=== PATIENT | female | born 1945 | race Caucasian/White ===

== ENCOUNTER → 2019-10-01 | Outpatient (CLI) | payer OTHER, SELFPAY | LOC: M LABSMTC 10:00 | PROVIDERS: ATTEND Family Medicine | DX: Z20.828 Contact with and (suspected) exposure to other viral communicable diseases (principal) ==

== ENCOUNTER → 2020-10-09 | Outpatient (CLI) | payer MEDICARE, OTHER ==
--- NOTE | 2020-10-09 14:55 | REP ---
INDICATION: OCCLUSION/STENOSIS BOLIVAR CAROTID ARTERIES COMPARISON: None. TECHNIQUE: Real-time ultrasound evaluation and duplex Doppler interrogation of the extracranial carotid vasculature is performed. FINDINGS: There is mild plaquing and narrowing in both carotid bulbs extending into the internal and external carotid arteries. There is some [id number] intimal thickening but luminal narrowing is less than 50%. There is no evidence of hemodynamically significant stenosis of either internal carotid artery. Normal flow velocities are seen. The vertebral arteries demonstrate normal direction of flow. RIGHT LEFT Peak systolic velocity ICA 45.8 cm/s 35.3 cm/s End diastolic velocity ICA 12.1 cm/s 10.1 cm/s Peak systolic velocity CCA 76.1 cm/s 60.1cm/s Peak systolic velocity ECA 37.8 cm/s 45.7 cm/s ICA/CCA ratio 0.6 0.59 IMPRESSION: Bilateral luminal narrowing of the internal carotid arteries less than 50%. No evidence of hemodynamically significant stenosis. <Electronically signed by Eamon Beth > 10/09/20 0846
== END ==
LOC: M RAD 12:38
PROVIDERS: ATTEND Physician Assistant
DX: I65.23 Occlusion and stenosis of bilateral carotid arteries (principal)

== ENCOUNTER → 2024-01-27 | Outpatient (CLI) | payer MEDICARE, OTHER ==
[~2024-01-27] MED LIST: ALBU8.5H INH; ASPI-226 PO; ATOR40TA75 PO; FERR32TA PO; GABA-1171 PO; GLIP5TAB20 PO; LOSA25TA13 PO; METF500T13 PO; MONT10TA97 PO; OLOP5DRO17 OU; OMEP-173 PO; ONDA-282 PO; SERT50TA29 PO; SYNT50TA PO; TEMA15CA2 PO; TRAM50TA2 PO; VAGI10TA PO
== END ==
LOC: M RAD 14:48
PROVIDERS: ATTEND Physician Assistant
DX: I65.23 Occlusion and stenosis of bilateral carotid arteries (principal)

== ENCOUNTER 2024-02-11 08:16 | Day surgery (SDC) | payer MEDICARE, OTHER ==
[~2024-02-11] VITALS: Ht 154.9 cm; Wt 76.9 kg
[~2024-02-11 08:16] MED LIST changes: +PHENYLEPHRINE 10% OPHTH SOL 5ML OD PRN
[2024-02-11] MEDS: ATROPINE SULFATE 1% OPHTH SOLN 2ML BTL OD SCH (08:54)
[2024-02-11] MEDS: PHENYLEPHRINE 2.5% OPHTH SOL 2ML OD SCH (08:55)
[2024-02-11] MEDS: TROPICAMIDE 1% OPHTH SOLN 15ML OD SCH (08:55)
[2024-02-11] MEDS: OFLOXACIN 0.3 % (OCUFLOX) OPTH SOL 5ML OD ONE (08:55)
[2024-02-11] MEDS: LIDOCAINE 3.5 % 1ML OPHTH TOPICAL GEL OU ONE (08:56)
[2024-02-11] MEDS ORDERED: MIDAZOLAM INJ 2MG/2ML VIAL As Ordered ONE (09:13)
[2024-02-11] MEDS: BSS IRRIG/VANCO(10MG)/TOBRA(5MG)/EPINEPH(1:1000-0.5CC)500ML BAG-ORONLY As Ordered ONE (09:16)
[2024-02-11] MEDS: LIDOCAINE 1% SDV 5ML VIAL As Ordered ONE (09:16)
[2024-02-11] MEDS ORDERED: fentaNYL 100 MCG/2 ML INJECTION As Ordered ONE (09:16)
[2024-02-11] MEDS: CEFUROXIME 1MG/0.1ML INTRACAMERAL INJ As Ordered ONE (09:21)
[2024-02-11 09:29] VITALS: BP 148/65; TEMP 96.6; O2SAT 97
== END 2024-02-11 09:58 | disposition home or self-care (01) ==
LOC: M SDC 08:16
PROVIDERS: ATTEND Ophthalmology
DX: H25.11 Age-related nuclear cataract, right eye (principal); I25.10 Atherosclerotic heart disease of native coronary artery without angina pectoris; E11.9 Type 2 diabetes mellitus without complications; E03.9 Hypothyroidism, unspecified; K21.9 Gastro-esophageal reflux disease without esophagitis; M19.90 Unspecified osteoarthritis, unspecified site; G43.909 Migraine, unspecified, not intractable, without status migrainosus; G57.93 Unspecified mononeuropathy of bilateral lower limbs; G57.63 Lesion of plantar nerve, bilateral lower limbs; J45.909 Unspecified asthma, uncomplicated; Z79.899 Other long term (current) drug therapy; Z79.82 Long term (current) use of aspirin; Z79.84 Long term (current) use of oral hypoglycemic drugs; Z79.890 Hormone replacement therapy
CPT/HCPCS: 66984; J0697; J2250; J3010; V2632

== ENCOUNTER 2024-02-25 07:46 | Day surgery (SDC) | payer MEDICARE, OTHER ==
[~2024-02-25] VITALS: Ht 152.4 cm; Wt 76.5 kg
[~2024-02-25 07:46] MED LIST changes: -PHENYLEPHRINE 10% OPHTH SOL 5ML OD PRN; +PHENYLEPHRINE 10% OPHTH SOL 5ML OS PRN
[2024-02-25] MEDS: LIDOCAINE 3.5 % 1ML OPHTH TOPICAL GEL OU ONE (08:14)
[2024-02-25] MEDS: OFLOXACIN 0.3 % (OCUFLOX) OPTH SOL 5ML OS ONE (08:14)
[2024-02-25] MEDS: PHENYLEPHRINE 2.5% OPHTH SOL 2ML OS SCH (08:15)
[2024-02-25] MEDS: ATROPINE SULFATE 1% OPHTH SOLN 2ML BTL OS SCH (08:15)
[2024-02-25] MEDS: TROPICAMIDE 1% OPHTH SOLN 15ML OS SCH (08:15)
[2024-02-25] MEDS ORDERED: MIDAZOLAM INJ 2MG/2ML VIAL As Ordered ONE (09:38)
[2024-02-25] MEDS ORDERED: fentaNYL 100 MCG/2 ML INJECTION As Ordered ONE (09:38)
[2024-02-25] MEDS: CEFUROXIME 1MG/0.1ML INTRACAMERAL INJ As Ordered ONE (09:38)
[2024-02-25] MEDS: LIDOCAINE 1% SDV 5ML VIAL As Ordered ONE (09:38)
[2024-02-25] MEDS: BSS IRRIG/VANCO(10MG)/TOBRA(5MG)/EPINEPH(1:1000-0.5CC)500ML BAG-ORONLY As Ordered ONE (09:38)
[2024-02-25 09:45] VITALS: BP 108/58; TEMP 97.3; O2SAT 98
== END 2024-02-25 10:07 | disposition home or self-care (01) ==
LOC: M SDC 07:46
PROVIDERS: ATTEND Ophthalmology
DX: E11.36 Type 2 diabetes mellitus with diabetic cataract (principal); H25.12 Age-related nuclear cataract, left eye; I25.10 Atherosclerotic heart disease of native coronary artery without angina pectoris; E03.9 Hypothyroidism, unspecified; E11.40 Type 2 diabetes mellitus with diabetic neuropathy, unspecified; J45.909 Unspecified asthma, uncomplicated; K21.9 Gastro-esophageal reflux disease without esophagitis; Z79.899 Other long term (current) drug therapy; Z79.82 Long term (current) use of aspirin; Z79.84 Long term (current) use of oral hypoglycemic drugs; Z79.890 Hormone replacement therapy; Z90.710 Acquired absence of both cervix and uterus; Z87.19 Personal history of other diseases of the digestive system; Z98.41 Cataract extraction status, right eye

== ENCOUNTER → 2025-05-29 | Outpatient (CLI) | payer MEDICARE, OTHER ==
[~2025-05-29] MED LIST changes: +GLIP-318 PO; -GLIP5TAB20 PO; -PHENYLEPHRINE 10% OPHTH SOL 5ML OS PRN
== END ==
LOC: M PLAIMG 12:36
PROVIDERS: ATTEND Physician Assistant
DX: I25.10 Atherosclerotic heart disease of native coronary artery without angina pectoris (principal); I34.0 Nonrheumatic mitral (valve) insufficiency